=== PATIENT | male | born 1970 | race Two or more races ===

== ENCOUNTER 2017-07-11 11:12 | Emergency (ER) | payer SELFPAY ==
[~2017-07-11] VITALS: Ht 175.3 cm; Wt 90.7 kg
--- NOTE | 2017-07-11 11:15 | NUR ---
AAOX3, CAME TO ER C/O LACERATION TO L WRIST. NOT ACTIVELY BLEEDING AT THIS TIME. RR IS EVEN AND UNLABORED WITH NAD NOTED. SKIN IS WARM AND DRY. DR HOFFMAN AT BS FOR EVAL.
[2017-07-11] MEDS ORDERED: TDAP [DIPH/PERTUSSIS/TET] 0.5 ML VIAL IM ONE ×2 (11:41→12:00)
--- NOTE | 2017-07-11 11:52 | NUR ---
Patient discharged to home in stable condition. Written and verbal after care instructions given. Patient verbalizes understanding of instruction.
[2017-07-11 11:56] VITALS: BP 138/76
== END 2017-07-11 11:57 | disposition home or self-care (01) ==
LOC: ER 11:19
DX: S61.512A Laceration without foreign body of left wrist, initial encounter (principal); W26.8XXA Contact with other sharp object(s), not elsewhere classified, initial encounter; Y93.89 Activity, other specified; Y92.89 Other specified places as the place of occurrence of the external cause; Y99.9 Unspecified external cause status
CPT/HCPCS: 29125; 90471; 90715; 99283; A4606; A6402; Z7610